=== PATIENT | male | born 1960 | race Caucasian/White ===

== ENCOUNTER 2016-12-17 06:09 | Outpatient (CLI) | payer OTHER ==
[2015-08-11 10:03] VITALS: BMI 30.8
[2016-12-17 06:25] LABS: BASOPHILS # (AUTO) 0.1 K/uL (0-0.2); BASOPHILS % (AUTO) 0.9 % (0.0-3.0); EOSINOPHILS # (AUTO) 0.2 K/ul (0.0-0.7); EOSINOPHILS % (AUTO) 2.3 % (0.0-7.0); HEMATOCRIT 36.8 % (42.0-52.0); HEMOGLOBIN 12.9 g/dl (14.0-18.0); IMMATURE GRANULOCYTE % (AUTO) 0.2 % (0.0-5.0); LYMPHOCYTES % (AUTO) 32.2 (10.0-50.0); MEAN CORPUSCULAR HEMOGLOBIN 31.2 pg (27.0-31.0); MEAN CORPUSCULAR HGB CONC 35.1 (31.8-35.4); MEAN CORPUSCULAR VOLUME 88.9 fl (80.0-94.0); MONOCYTES # (AUTO) 0.4 K/uL (0.4-2.0); NEUTROPHILS # (AUTO) 5.6 K/ul (2.0-6.9); NEUTROPHILS % (AUTO) 60.4; PLATELET COUNT 246 10^3/uL (140-440); RED BLOOD COUNT 4.14 10^6/ul (4.70-6.10)
[2016-12-17 06:48] LABS: ALBUMIN 4.2 g/dL (3.4-5.0); ALBUMIN/GLOBULIN RATIO 1.17; ANION GAP 12.6; BILIRUBIN,TOTAL 0.48 mg/dL (0.00-1.20); BUN/CREATININE RATIO 13.81; CHOL/HDL RATIO 5.8 (4.5-6.4); CREATININE 1.52 mg/dL (0.60-1.10); POTASSIUM 4.6 mmol/L (3.5-5.1); TOTAL PROTEIN 7.8 g/dL (6.4-8.2)
== END 2016-12-17 06:10 | disposition home or self-care (01) ==
LOC: LAB 06:09
PROVIDERS: ATTEND Nurse Practitioner Family
DX: E78.5 Hyperlipidemia, unspecified (principal); I25.10 Atherosclerotic heart disease of native coronary artery without angina pectoris; E11.9 Type 2 diabetes mellitus without complications
CPT/HCPCS: 36415; 80053; 80061; 83036; 85025

== ENCOUNTER 2016-12-25 06:12 | Outpatient (CLI) ==
[2015-08-11 10:03] VITALS: BMI 30.8
--- NOTE | 2016-12-25 08:10 | US ---
EXAM: RENAL ULTRASOUND, BILATERAL HISTORY: Chronic kidney disease FINDINGS: Ultrasound renal, bilateral. Bedoya-scale ultrasound and color Doppler imaging was perform ed. The right kidney measures 11.1 x 5.2 x 3.8 centimeters. The left kidney measures 10.8 x 4.5 x 4.2 centimeters. General cortical echogenicity and volume are normal for age. No solid or cystic cortical masses. N o hydronephrosis is identified. The urinary bladder was less than optimally distended limiting its evaluation. There may be mild ci rcumferential urinary bladder wall thickening. Ureteral jets were not visualized. IMPRESSION: 1. Kidneys were within normal limits. No hydronephrosis. 2. The urinary bladder was less than optimally distended limiting its evaluation. There may be mild circumferential urinary bladder wall thickening.
== END 2016-12-25 06:13 | disposition home or self-care (01) ==
LOC: RAD 06:12
PROVIDERS: ATTEND Emergency Medicine
DX: N18.2 Chronic kidney disease, stage 2 (mild) (principal); D63.1 Anemia in chronic kidney disease
CPT/HCPCS: 76770

== ENCOUNTER 2017-06-18 13:34 | Outpatient (CLI) ==
[2015-08-11 10:03] VITALS: BMI 30.8
[2017-06-18 13:50] LABS: BASOPHILS # (AUTO) 0.1 K/uL (0-0.2); BASOPHILS % (AUTO) 1.3 % (0.0-3.0); EOSINOPHILS # (AUTO) 0.3 K/ul (0.0-0.7); EOSINOPHILS % (AUTO) 3.7 % (0.0-7.0); HEMATOCRIT 39.1 % (42.0-52.0); HEMOGLOBIN 13.5 g/dl (14.0-18.0); IMMATURE GRANULOCYTE % (AUTO) 0.3 % (0.0-5.0); LYMPHOCYTES # (AUTO) 2.1 K/uL (0.60-3.4); MEAN CORPUSCULAR HEMOGLOBIN 30.7 pg (27.0-31.0); MEAN CORPUSCULAR HGB CONC 34.5 (31.8-35.4); MEAN CORPUSCULAR VOLUME 88.9 fl (80.0-94.0); MONOCYTES # (AUTO) 0.3 K/uL (0.4-2.0); MONOCYTES % (AUTO) 4.8 (0-10); NEUTROPHILS # (AUTO) 4.2 K/ul (2.0-6.9); NEUTROPHILS % (AUTO) 59.9; PLATELET COUNT 240 10^3/uL (140-440); WHITE BLOOD COUNT 7.06 K/ul (4.2-10.2)
[2017-06-18 14:02] LABS: ALBUMIN 3.9 g/dL (3.4-5.0); ANION GAP 14.3; BILIRUBIN,TOTAL 0.43 mg/dL (0.00-1.20); BUN/CREATININE RATIO 18.24; CHOL/HDL RATIO 5.8 (4.5-6.4); CREATININE 1.48 mg/dL (0.60-1.10); POTASSIUM 4.3 mmol/L (3.5-5.1); TOTAL PROTEIN 7.8 g/dL (6.4-8.2)
== END 2017-06-18 13:35 | disposition home or self-care (01) ==
LOC: LAB 13:34
PROVIDERS: ATTEND Nurse Practitioner Family
DX: E11.9 Type 2 diabetes mellitus without complications (principal); E78.5 Hyperlipidemia, unspecified; I25.10 Atherosclerotic heart disease of native coronary artery without angina pectoris
CPT/HCPCS: 36415; 80053; 80061; 83036; 85025

== ENCOUNTER 2017-08-24 23:53 | Inpatient (IN) ==
[2017-08-25] MEDS ORDERED: SODIUM CHLORIDE 500 ML IV STA (00:06)
--- NOTE | 2017-08-25 00:40 | ED.PDOC ---
General ED Provider: Dr. BRITTA WYLIE Chief Complaint: Weakness Stated Complaint: Patient had diarrheax 1 episode, felt weak, not able to walk. Time Seen by Physician: 00:36 Mode of Arrival: Wheelchair Information Source: Patient Primary Care Provider: BRITTA WYLIE-[facility] Nursing and Triage Documentation Reviewed and Agree: Yes Reviewed sepsis parameters & appropriate labs ordered?: No System Inflammatory Response Syndrome: Not Applicable Sepsis Protocol: For patient's 13 years and over: Temp is 96.8 and below OR 101 and greater Pulse >90 BPM Resp >20/minute Acutely Altered Mental Status Are patient's symptoms suggestive of a new infection, such as: -Pneumonia -Skin, Soft Tissue -Endocarditis -UTI -Bone, Joint Infection -Implantable Device -Acute Abdominal Infection -Wound Infection -Meningitis -Blood Stream Catheter Infection -Unknown Neurological Complaint Exam - Weakness Complaint/Exam Onset: Sudden Symptoms Are: Still present Timing: Constant Episodes Lasting: Minutes Initial Severity: Moderate Current Severity: Moderate Character: Reports: Room spinning, Lightheaded Aggravating: Reports: Position change Alleviating: Reports: None Associated Signs and Symptoms: Reports: Nausea Cardiac Risk Factors: Reports: Hypertension, Diabetes, Elevated lipids CVA Risk Factors: Reports: Diabetes, Hypertension, CAD Related Surgical History: Reports: None JVD Present: No Carotid Bruit Present: No Rectal Heme Positive: No Nystagmus Present: No Gag Reflex Present: No Meningeal Signs Positive: No Focal Weakness: Present: LLE Focal Sensory Loss: Present: None Gait: Abnormal [id number]: Normal Findings Differential Diagnoses: Hypovolemia, Metabolic abnormalities, Vasovagal reaction Quality Indicators for Cardiac Chest Pain: EKG in 10min. Review of Systems - Review Of Systems Constitutional: Reports: Malaise, Weakness Eyes: Reports: No symptoms Ears, Nose, Mouth, Throat: Reports: No symptoms Respiratory: Reports: No symptoms Cardiac: Reports: No symptoms GI: Reports: Diarrhea : Reports: No symptoms Musculoskeletal: Reports: No symptoms Skin: Reports: No symptoms Neurological: Reports: No symptoms Endocrine: Reports: No symptoms Hematologic/Lymphatic: Reports: No symptoms All Other Systems: Reviewed and Negative Past Medical History - Past Medical History Previously Healthy: No Endocrine: Reports: DM 2 Cardiovascular: Reports: Hypertension Respiratory: Reports: None Hematological: Reports: None Gastrointestinal: Reports: Liver (elevated liver enzymes) Genitourinary: Reports: None Neuro/Psych: Reports: 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) Musculoskeletal: Reports: None Cancer: Reports: None - Surgical History General Surgical History: Reports: None - Family History Family History: Reports: None - Social History Smoking Status: Never smoker Hx Substance Use: No Alcohol Screening: None - Immunizations Tetanus Shot up to Date: No Physical Exam - Physical Exam Appearance: Ill-appearing, Obese Eyes: EOMI, Conjunctiva clear ENT: Ears normal, Nose normal, Oropharynx normal Respiratory: Airway patent, Breath sounds clear, Breath sounds equal, Respirations nonlabored Cardiovascular: RRR, Pulses normal, No rub, No murmur GI/: Soft, Nontender, No masses, Bowel sounds normal, No Organomegaly Musculoskeletal: Normal strength, ROM intact, No edema, No calf tenderness Skin: Warm, Dry, Normal color Neurological: Sensation intact, Motor intact, Reflexes intact, Cranial nerves intact, Alert, Oriented Psychiatric: Affect appropriate, Mood appropriate Critical Care Note - Critical Care Note Total Time (mins): 15 Course - Course Hematology/Chemistry: 08/25/17 00:15 Orders, Labs, Meds: Lab Review 08/25/17 00:15 WBC 14.82 H RBC 4.27 L Hgb 13.5 L Hct 38.7 L MCV 90.6 MCH 31.6 H MCHC 34.9 RDW Coeff of Marsha 13.1 Plt Count 265 Immature Gran % (Auto) 0.5 Neut % (Auto) 86.0 Lymph % (Auto) 7.2 L Orange % (Auto) 3.2 Eos % (Auto) 2.6 Baso % (Auto) 0.5 Immature Gran # (Auto) 0.1 Neut # 12.7 H Lymph # 1.1 Orange # 0.5 Eos # 0.4 Baso # 0.1 Orders Category Date Time Status EKG-(ED ONLY) Stat CARDIO 08/25/17 00:06 Ordered ACCUCHECK (ED) [ED ACCUCHECK ASSESSMENT] .ONCE EMERGENCY 08/25/17 00:15 Active ED IV/MEDIPORT/POWERPORT .ONCE EMERGENCY 08/25/17 00:06 Active CBC W/ AUTO DIFF Stat LAB 08/25/17 00:15 Completed COMPREHENSIVE METABOLIC PANEL Stat LAB 08/25/17 00:15 Received CREATINE KINASE Stat LAB 08/25/17 00:15 Received TROPONIN I Stat LAB 08/25/17 00:15 Received 0.9 % Sodium Chloride [Saline Flush] MEDS 08/25/17 00:06 Ordered 1 syr IVF PRN PRN Sodium Chloride 0.9% [Sodium Chloride] 500 ml MEDS 08/25/17 00:[address] ABDOMEN/PELVIS WO CONTRAST Stat RADS 08/25/17 00:06 Taken Medications Generic Name Dose Route Start Last Admin Trade Name Freq PRN Reason Stop Dose Admin Sodium Chloride 500 mls @ 500 mls/hr 08/25/17 00:06 08/25/17 00:13 Sodium Chloride IV 08/25/17 01:05 500 mls/hr BOLUS STA Administration Sodium Chloride 1 syr 08/25/17 00:06 08/25/17 00:13 Saline Flush IVF 1 syr PRN PRN Administration To flush IV Vital Signs: Temp Pulse Resp BP Pulse Ox 08/24/17 23:54 96.6 F L 91 H 26 H 82/59 L 97 Departure - Departure Time of Disposition: 00:41 Disposition: ADMITTED INPATIENT Discharge Problem: Hypovolemic shock, Gastroenteritis Instructions: Dehydration (ED) Condition: Stable Pt referred to PMD for follow-up: No IPMP verified?: No Allergies/Adverse Reactions: Allergies insulin regular Adverse Reaction (Verified 08/11/15 10:05) ranolazine Adverse Reaction (Verified 08/11/15 10:05) Home Medications: Ambulatory Orders Nitroglycerin [Nitrostat] 0.4 mg SL Q5MIN X 3 DOSES PRN 01/22/14 Aspirin [Aspirin Chewable] 81 mg PO DAILYWM 03/20/15 Pravastatin Sodium [Pravachol] 40 mg PO BEDTIME 08/11/15 Amitriptyline HCl 25 mg PO BEDTIME 01/01/16 Dextromethorphan HBr/Quinidine [Nuedexta 20-10 Mg Capsule] 1 each PO BEDTIME Topiramate [Topamax] 100 mg PO BID 06/21/17 Disposition Discussed With: Patient
--- NOTE | 2017-08-25 00:43 | CT ---
EXAM: CT of the abdomen and pelvis without contrast. HISTORY: Diarrhea. Weakness. PROCEDURE: Contiguous axial CT images of the abdomen and pelvis without contrast with coronal and sa gittal reformats. FINDINGS: The liver is normal in appearance. The gallbladder is surgically absent. The pancreas, sp janae, adrenal glands and kidneys are normal in appearance. The abdominal aorta is within normal limit s in diameter. The visualized loops of bowel and appendix are normal in appearance. No free fluid or free air in the abdomen or pelvis. The bladder is minimally filled with no abnormality identified. The seminal vesicles and prostate gland are unremarkable. There are degenerative changes in the spin e. Impression: Negative CT of the abdomen and pelvis. Cholecystectomy.
[2017-08-25 02:18] VITALS: BMI 27.2
[2017-08-25] MEDS: SODIUM CHLORIDE 1,000 ML IV SCH ×3 (03:07→22:32)
[2017-08-25] MEDS ORDERED: NON-FORMULARY MEDICATION (Empagliflozin [Jardiance] 25 MG) PO SCH (09:00)
[2017-08-25] MEDS ORDERED: NON-FORMULARY MEDICATION (Topiramate [Topamax] 100 MG) PO SCH (09:00)
[2017-08-25] MEDS: ASPIRIN CHEWABLE PO SCH (09:39)
[2017-08-25] MEDS: JARDIANCE PO SCH (09:40)
[2017-08-25] MEDS: TOPAMAX PO SCH ×2 (09:43→20:25)
[2017-08-25] MEDS: LOVENOX SUBCUT SCH (09:44)
[2017-08-25] MEDS: PROTONIX PO SCH (09:48)
[2017-08-25] MEDS: PLAVIX PO SCH (09:48)
[2017-08-25] MEDS: PROAIR HFA IH SCH ×4 (09:49→20:25)
[2017-08-25] MEDS: ELAVIL PO SCH (20:25)
[2017-08-25] MEDS: PRAVACHOL PO SCH (20:25)
[2017-08-25] MEDS: QUINIDINE PO SCH (20:28)
[2017-08-25] MEDS: [UNRECOGNIZED DRUG - OTHER] PO SCH (20:28)
[2017-08-25] MEDS: DEXTROMETHORPHAN HBR PO SCH (20:28)
[2017-08-26] MEDS: PROTONIX PO SCH (05:42)
[2017-08-26] MEDS: PROAIR HFA IH SCH ×4 (08:37→20:33)
[2017-08-26] MEDS: JARDIANCE PO SCH (08:37)
[2017-08-26] MEDS: PLAVIX PO SCH (08:37)
[2017-08-26] MEDS: TOPAMAX PO SCH ×2 (08:37→20:33)
[2017-08-26] MEDS: ASPIRIN CHEWABLE PO SCH (08:37)
[2017-08-26] MEDS: LOVENOX SUBCUT SCH (08:39)
[2017-08-26] MEDS: SODIUM CHLORIDE 1,000 ML IV SCH (09:05)
--- NOTE | 2017-08-26 13:10 | PN ---
DATE OF SERVICE: 08/25/17 SUBJECTIVE: The patient is admitted with acute diarrhea, dehydration, hypovolemic shock. The pressure is at 109; home medications for the blood pressure on hold. The patient is feeling better, don't want to eat, feels somewhat weaker but no diarrhea anymore. REVIEW OF SYSTEMS: CONSTITUTIONAL: Weakness. No fever, no chills. HEENT: Normal. ENDOCRINE: No weight gain, no weight loss. CVS: No angina symptoms. No CHF symptoms. No palpitations. No atypical chest pain for CAD. No shortness of breath. No PND, no orthopnea. RESPIRATORY: No cough, no hemoptysis. GI: Poor appetite. No nausea, no vomiting. No abdominal pain. : No hematuria. No polyuria. MUSCULOSKELETAL: No joint swelling. PSYCHIATRIC: Not anxious. No depression. No suicidal thoughts. No homicidal thoughts. SKIN: Intact. No rash. PHYSICAL EXAMINATION: V/S: BP 109/70, respiratory rate 16, heart rate 91, temperature 98.2, saturation 99. HEENT: Normocephalic, atraumatic. Mucosa dry, pallor positive. No icterus. NECK: Supple. No JVD, no carotid bruit. No lymphadenopathy. LUNGS: Decreased air entry. Clear to auscultation. No rales or rhonchi. HEART: S1, S2 normal. No S3. No murmur, gallop or regurgitation. ABDOMEN: Soft, nontender. Bowel sounds active. No rigidity. No rebound or guarding. No CVA tenderness. EXTREMITIES: No pedal edema. No clubbing or cyanosis MUSCULOSKELETAL: No joint swelling. NEUROLOGIC: Awake, alert, oriented times three. No focal deficit. Left-sided arm weakness 4/5. LYMPHATIC: No lymph nodes palpable. SKIN: Intact. LABS: White count 8.62, hemoglobin 12.0, hematocrit 35.1, platelet count 198. Sodium 142, potassium 4.0, chloride 113, bicarb 20, BUN 23, creatinine 1.28. Glucose 132. ASSESSMENT: 1. ACUTE GASTROENTERITIS 2. HYPOVOLEMIC SHOCK 3. DIABETES 4. HYPERTENSION 5. HISTORY OF CVA WITH LEFT-SIDED WEAKNESS 6. ANEMIA PLAN: 1. Soft diet 2. Continue IV fluids at 100 mL/hr 3. Keep holding blood pressure medications 4. Accu-Cheks with coverage 5. Out of bed to chair TIME SPENT: More than 35 minutes MTDD
--- NOTE | 2017-08-26 16:03 | US ---
EXAM: Bilateral carotid artery Doppler History: Dizziness, cerebrovascular accident. Technique: Multiple sonographic images through the bilateral internal carotid arteries were obtained . Color duplex Doppler was used to interrogate vascular flow. Findings: The right ICA peak systolic velocity is within normal limits measuring 1.1 meters per second. The ri t ICA/cca PSV ratio is normal at 1.1. The right vertebral artery is patent and demonstrates antegr oliver flow. Bedoya scale images demonstrate mild plaque buildup within the right internal carotid artery . The left ICA peak systolic velocities within normal limits measuring 1.0. Meters per second. The le ICA/cca PSV ratio is normal at 1.1. The left vertebral artery is patent and demonstrates antegrad e flow. Bedoya scale images demonstrate mild plaque buildup within the left internal carotid artery Impression: No significant hemodynamic stenosis of the bilateral internal carotid arteries.
[2017-08-26] MEDS: PRAVACHOL PO SCH (20:33)
[2017-08-26] MEDS: ELAVIL PO SCH (20:33)
[2017-08-26] MEDS: [UNRECOGNIZED DRUG - OTHER] PO SCH (20:43)
[2017-08-26] MEDS: QUINIDINE PO SCH (20:43)
[2017-08-26] MEDS: DEXTROMETHORPHAN HBR PO SCH (20:43)
[2017-08-27] MEDS: PROTONIX PO SCH (05:42)
[2017-08-27] MEDS: TOPAMAX PO SCH ×2 (08:57→20:33)
[2017-08-27] MEDS: JARDIANCE PO SCH (08:57)
[2017-08-27] MEDS: ASPIRIN CHEWABLE PO SCH (08:57)
[2017-08-27] MEDS: PROAIR HFA IH SCH ×4 (08:57→20:33)
[2017-08-27] MEDS: PLAVIX PO SCH (08:58)
[2017-08-27] MEDS: LOVENOX SUBCUT SCH (08:59)
[2017-08-27] MEDS: SODIUM CHLORIDE 1,000 ML IV SCH (19:17)
[2017-08-27] MEDS: PRAVACHOL PO SCH (20:33)
[2017-08-27] MEDS: ELAVIL PO SCH (20:33)
[2017-08-27] MEDS: DEXTROMETHORPHAN HBR PO SCH (20:36)
[2017-08-27] MEDS: [UNRECOGNIZED DRUG - OTHER] PO SCH (20:36)
[2017-08-27] MEDS: QUINIDINE PO SCH (20:36)
[2017-08-28] MEDS: PROTONIX PO SCH (06:00)
[2017-08-28] MEDS: PROAIR HFA IH SCH ×2 (08:10→12:01)
[2017-08-28] MEDS: ASPIRIN CHEWABLE PO SCH (08:11)
[2017-08-28] MEDS: PLAVIX PO SCH (08:12)
[2017-08-28] MEDS: JARDIANCE PO SCH (08:12)
[2017-08-28] MEDS: LOVENOX SUBCUT SCH (08:15)
[2017-08-28] MEDS: TOPAMAX PO SCH (08:26)
[2017-08-28 10:23] VITALS: BP 103/65; TEMP 97.6
[2017-08-28] MEDS: SODIUM CHLORIDE 1,000 ML IV SCH (11:00)
--- NOTE | 2017-08-30 15:09 | PN ---
DATE OF SERVICE: 08/26/17 SUBJECTIVE: The patient was admitted with dehydration and hypertensive shock. The patient has been getting IV fluids at 100ml per hour. Blood pressure is around 110 now. Started urinating now. No fever or chills. Had yesterday one twinge in the left side of the chest and some chest pain. The patient is on event monitor. He did press the button and the results were sent to the [facility] in [place]. They are evaluating the patient for palpitation. Also been complaining of some dizziness when he gets up from the bed otherwise no fever or chills and no more diarrhea. REVIEW OF SYSTEMS: CONSTITUTIONAL: No fever, no chills. HEENT: Normal. ENDOCRINE: No weight gain, no weight loss. CVS: No angina symptoms. No CHF symptoms. No palpitations. No atypical chest pain for CAD. No shortness of breath. No PND, no orthopnea. RESPIRATORY: No cough, no hemoptysis. GI: No nausea, no vomiting. No abdominal pain. : No hematuria. No polyuria. MUSCULOSKELETAL: No joint swelling. PSYCHIATRIC: Not anxious. No depression. No suicidal thoughts. No homicidal thoughts. SKIN: Intact. No rash. PHYSICAL EXAMINATION: V/S: Blood pressure 114/69, respiratory rate 20, heart rate 89, temperature 98.7 and saturation 98%. HEENT: Normocephalic, atraumatic. Mucosa dry. Pallor positive. No icterus. NECK: Supple. No JVD, no carotid bruit. No lymphadenopathy. LUNGS: Decreased and Clear to auscultation. No rales or rhonchi. HEART: S1, S2 normal. No S3. No murmur, gallop or regurgitation. ABDOMEN: Soft, nontender. Bowel sounds active. No rigidity. No rebound or guarding. No CVA tenderness. EXTREMITIES: No pedal edema. No clubbing or cyanosis MUSCULOSKELETAL: No joint swelling. Left sided some weakness present. NEUROLOGIC: Awake, alert, oriented times three. No focal deficit. LYMPHATIC: No lymph nodes palpable. SKIN: Intact. LABS: WBC 6.15, hgb 11.8, hct 34.6, plt count 181, sodium 142, potassium 3.8, chloride 113, bicarb 19, BUN 21, creatinine 1.26 and glucose 128. ASSESSMENT: 1. Hypotensive shock from dehydration 2. Acute gastroenteritis 3. Dizziness 4. Chest pain, noncardiac at this time. Cardiac enzymes are negative. EKG is not significant 5. History of CVA 6. History of palpitation, on event monitor right now 7. Diabetes 8. Chronic kidney disease 9. Anemia PLAN: 1. Will get carotid ultrasound 2. Out of bed to chair 3. Decrease the IV fluids at 40ml per hour 4. Resume Lisinopril at 5mg PO daily 5. Accu-checks with coverage TIME SPENT: More than 35 minutes MTDD
--- NOTE | 2017-10-01 10:10 | PN ---
DATE OF SERVICE: 08/27/17 SUBJECTIVE: He is still feeling weak and tired and sometimes some dizziness. Carotid ultrasound did not show any blockage. REVIEW OF SYSTEMS: CONSTITUTIONAL: No fever, no chills. Weak and tired HEENT: Normal. ENDOCRINE: No weight gain, no weight loss. CVS: No angina symptoms. No CHF symptoms. No palpitations. No atypical chest pain for CAD. No shortness of breath. No PND, no orthopnea. RESPIRATORY: No cough, no hemoptysis. GI: No nausea, no vomiting. No abdominal pain. : No hematuria. No polyuria. MUSCULOSKELETAL: No joint swelling. PSYCHIATRIC: Not anxious. No depression. No suicidal thoughts. No homicidal thoughts. SKIN: Intact. No rash. PHYSICAL EXAMINATION: V/S: Blood pressure 118/74, respiratory rate 18, heart rate 83, temperature 98.3 , saturation 100. HEENT: Normocephalic, atraumatic. Mucosa dry. Pallor positive. No icterus. NECK: Supple. No JVD, no carotid bruit. No lymphadenopathy. LUNGS: Clear to auscultation. No rales or rhonchi. HEART: S1, S2 normal. No S3. No murmur, gallop or regurgitation. ABDOMEN: Soft, nontender. Bowel sounds active. No rigidity. No rebound or guarding. No CVA tenderness. EXTREMITIES: No pedal edema. No clubbing or cyanosis MUSCULOSKELETAL: No joint swelling. NEUROLOGIC: Awake, alert, oriented times three. No focal deficit. LYMPHATIC: No lymph nodes palpable. SKIN: Intact. LABS: White count is 6.15, hemoglobin 11.8, hematocrit 34.6, platelet count 181 , sodium 140, potassium 3.8, chloride 113, bicarb 19, BUN 21, creatinine 1.26, glucose 128. ASSESSMENT: 1. HYPOVOLEMIC SHOCK, WHICH IS BETTER NOW 2. ACUTE GASTROENTERITIS 3. CHRONIC KIDNEY DISEASE 4. ANEMIA 5. HISTORY OF CVA WITH LEFT SIDED WEAKNESS 6. PALPITATIONS AND HEART RHYTHM ABNORMAL, BEING EVALUATED WITH EVENT MONITOR RIGHT NOW PLAN: 1. Continue the IV fluids. 2. Accuchecks with the coverage. 3. Lovenox for the DVT prophylaxis. TIME SPENT: More than 35 minutes MTDD
--- NOTE | 2017-10-01 15:05 | DS ---
DATE OF SERVICE: 08/28/17 FINAL DIAGNOSIS: 1. Hypotensive shock from the dehydration 2. Acute gastroenteritis 3. Dizziness 4. Chest pain, noncardiac at this time, Cardiac enzymes are negative. EKG is not significant 5. History of CVA 6. Palpitation 7. Diabetes 8. Chronic kidney disease 9. Anemia DISCHARGE INSTRUCTIONS: Discharge the patient home. Increase hydration. Resume all home medication as patient's blood pressure is almost normal. MEDICATIONS AT DISCHARGE: Nitroglycerin Amitriptyline Aspirin Plavix DUO NEBS Metformin Metoprolol Protonix Pravachol Topamax Triamterene Hydrochlorothiazide DIET INSTRUCTIONS: Cardiac and healthy diet Increase hydration. 2,000 ADA diet ACTIVITY: Can resume regular activities but take plenty of rest as much as possible. Will not be released to work until seen in the office. 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 Came out of the bathroom and sat in the chair and was not able to get up, almost ready to pass out. Not able to get up from the chair so the other security assistant brought to the patient to the emergency room. Blood pressure was 82/59, respiratory rate 26, heart rate 91, temperature 96.6. The patient was given fluid bolus. CT abdomen and pelvis is negative.Was admitted for the volume depletion from acute gastroenteritis. IV fluids were given. BP came up to 110/68, 115/68, up and about walking. He didn't have any more bowel movements. In review of the patient's history of stroke, patient had carotid ultrasound which was negative for stroke, negative for carotid stenosis. Then gradually the patient's home medications were resumed. Blood pressure was holding fine, up and about walking. Sugars were fine. At that time the patient being discharged home. Advised about the probiotics and yogurt and increasing the hydration. TIME SPENT: MORE THAN 55-60 MINUTES MTDD
== END 2017-08-28 14:05 | disposition home or self-care (01) | DRG 872 ==
LOC: ED 23:53 → MEDSURG A 08-25 01:14
PROVIDERS: ADMIT Emergency Medicine; ATTEND Emergency Medicine
DX: R57.1 Hypovolemic shock (principal); I69.954 Hemiplegia and hemiparesis following unspecified cerebrovascular disease affecting left non-dominant side; K52.9 Noninfective gastroenteritis and colitis, unspecified; R53.1 Weakness; R42 Dizziness and giddiness; I10 Essential (primary) hypertension; R07.89 Other chest pain; R00.2 Palpitations; I49.9 Cardiac arrhythmia, unspecified; I12.9 Hypertensive chronic kidney disease with stage 1 through stage 4 chronic kidney disease, or unspecified chronic kidney disease; E11.22 Type 2 diabetes mellitus with diabetic chronic kidney disease; N18.9 Chronic kidney disease, unspecified; D64.9 Anemia, unspecified; Z79.899 Other long term (current) drug therapy; Z79.84 Long term (current) use of oral hypoglycemic drugs
CPT/HCPCS: 36415; 80053; 81001; 82550; 82962; 84484; 85025; 93005; 93010; 96360; 99284

== ENCOUNTER 2017-09-20 10:02 | Inpatient (IN) ==
[2017-09-20 10:47] VITALS: BMI 25.3
[2017-09-20] MEDS ORDERED: SODIUM CHLORIDE 250 ML IV ONE (12:07)
[2017-09-20] MEDS ORDERED: TYLENOL PO PRN (12:10)
[2017-09-20] MEDS: SODIUM CHLORIDE 1,000 ML IV SCH (12:31)
[2017-09-20] MEDS: ROCEPHIN 1 GM in SODIUM CHLORIDE 50 ML IV SCH (13:23)
[2017-09-20] MEDS: SOLU-MEDROL 125 MG IVP SCH ×2 (13:24→21:46)
--- NOTE | 2017-09-20 13:24 | CT ---
Exam: CT of the chest without intravenous contrast. Comparison: 06/20/2014. Reason for exam: Coughing short of breath. FINDINGS: Image interpretation is limited by the lack of intravenous contrast administration. Ground-glass nodularity with developing opacities in the left lower lobe. There is a partially calci fied nodule in the left lung base measuring up to 8 mm. No pneumothorax or pleural effusion. The aorta is normal in course and caliber. The heart is not enlarged. Prompt appearing lymph nodes are seen throughout the mediastinum incompletely evaluated without intra venous contrast. The gallbladder has been removed. Degenerative disease is seen in the thoracic spine with osteophyte formation. No suspicious appearin g osteoblastic or osteolytic lesion. Impression: Ground-glass opacities in the left lower lobe with prominent appearing mediastinal lymph nodes. Imag ing findings are most consistent with pneumonia/pneumonitis. Follow-up imaging is recommended to doc ument resolution
[2017-09-20] MEDS: GLUCOPHAGE PO SCH (16:47)
[2017-09-20] MEDS: DUONEB NEB SCH ×2 (16:57→23:35)
[2017-09-20] MEDS ORDERED: NON-FORMULARY MEDICATION (Metformin Hcl [Metformin Hcl] 1,000 MG) PO SCH (21:00)
[2017-09-20] MEDS ORDERED: NON-FORMULARY MEDICATION (Topiramate [Topamax] 100 MG) PO SCH (21:00)
[2017-09-20] MEDS: PRAVACHOL PO SCH (21:45)
[2017-09-20] MEDS: ELAVIL PO SCH (21:45)
[2017-09-20] MEDS: TOPAMAX PO SCH (21:46)
[2017-09-20] MEDS: QUINIDINE PO SCH (21:48)
[2017-09-20] MEDS: DEXTROMETHORPHAN HBR PO SCH (21:48)
[2017-09-20] MEDS: [UNRECOGNIZED DRUG - OTHER] PO SCH (21:48)
[2017-09-21] MEDS: DUONEB NEB SCH ×4 (05:14→22:52)
[2017-09-21] MEDS: PROTONIX PO SCH (05:50)
[2017-09-21] MEDS: SODIUM CHLORIDE 1,000 ML IV SCH (08:10)
[2017-09-21] MEDS: SOLU-MEDROL 125 MG IVP SCH ×2 (09:16→21:47)
[2017-09-21] MEDS: TOPAMAX PO SCH ×2 (09:16→21:47)
[2017-09-21] MEDS: ROCEPHIN 1 GM in SODIUM CHLORIDE 50 ML IV SCH (09:16)
[2017-09-21] MEDS: DEXTROMETHORPHAN HBR PO SCH ×2 (09:17→21:53)
[2017-09-21] MEDS: ASPIRIN CHEWABLE PO SCH (09:17)
[2017-09-21] MEDS: [UNRECOGNIZED DRUG - OTHER] PO SCH ×2 (09:17→21:53)
[2017-09-21] MEDS: PLAVIX PO SCH (09:17)
[2017-09-21] MEDS: QUINIDINE PO SCH ×2 (09:17→21:53)
[2017-09-21] MEDS: GLUCOPHAGE PO SCH (09:17)
[2017-09-21] MEDS ORDERED: PHENERGAN WITH CODEINE 6.25/10 MG/5 ML PO PRN (09:27)
[2017-09-21] MEDS: ELAVIL PO SCH (21:47)
[2017-09-21] MEDS: PRAVACHOL PO SCH (21:47)
[2017-09-22] MEDS: DUONEB NEB SCH ×4 (04:58→22:59)
[2017-09-22] MEDS: PROTONIX PO SCH (05:42)
[2017-09-22] MEDS: SODIUM CHLORIDE 1,000 ML IV SCH (06:38)
[2017-09-22] MEDS: ROCEPHIN 1 GM in SODIUM CHLORIDE 50 ML IV SCH (09:05)
[2017-09-22] MEDS: [UNRECOGNIZED DRUG - OTHER] PO SCH ×2 (09:05→20:39)
[2017-09-22] MEDS: DEXTROMETHORPHAN HBR PO SCH ×2 (09:05→20:39)
[2017-09-22] MEDS: QUINIDINE PO SCH ×2 (09:05→20:39)
[2017-09-22] MEDS: ASPIRIN CHEWABLE PO SCH (09:06)
[2017-09-22] MEDS: TOPAMAX PO SCH ×2 (09:06→20:39)
[2017-09-22] MEDS: PLAVIX PO SCH (09:06)
[2017-09-22] MEDS: SOLU-MEDROL 125 MG IVP SCH ×2 (11:14→20:39)
--- NOTE | 2017-09-22 12:06 | DI ---
EXAM: Chest two view, frontal and lateral views. HISTORY: Left lower lobe pneumonia follow-up. COMPARISON: CT 09/20/2017. FINDINGS: Implantable loop recorder again noted over the anterior left chest. The heart size is nor mal. There is no pulmonary vascular congestion. Nodular densities in the left lower lobe again note d. Otherwise, the lungs are clear save for calcified granulomatous changes. No pleural effusion or pneumothorax is seen. No acute osseous abnormality identified. Degenerative changes seen in the spi ne. Clips noted in the upper abdomen. IMPRESSION: Stable left lower lobe nodular densities. Continued follow-up is recommended.
--- NOTE | 2017-09-22 13:48 | PN ---
DATE OF SERVICE: 09/21/17 SUBJECTIVE: The patient was admitted from the office yesterday for the shortness of breath, syncope, hypotension. CT scan of the chest showed the left lower lobe pneumonia. The patient has been getting the IV antibiotics, DUO NEBS. Blood pressure is still on the lower side 92/58 slightly dizziness. Hgb dropped from the 14.4 to 11.2. REVIEW OF SYSTEMS: CONSTITUTIONAL: No fever, no chills. Weakness. Tiredness. HEENT: Normal. ENDOCRINE: No weight gain, no weight loss. CVS: No angina symptoms. No CHF symptoms. No palpitations. No atypical chest pain for CAD. Shortness of breath. No PND, no orthopnea. RESPIRATORY: Cough and congestion, no hemoptysis. Lightheadedness. GI: No nausea, no vomiting. No abdominal pain. : No hematuria. No polyuria. MUSCULOSKELETAL: No joint swelling. PSYCHIATRIC: Not anxious. No depression. No suicidal thoughts. No homicidal thoughts. SKIN: Intact. No rash. PHYSICAL EXAMINATION: V/S: Blood pressure 92/58, respiratory rate 20, heart rate 107, temperature 98.1 and saturation 98%. HEENT: Normocephalic, atraumatic. Mucosa dry. Pallor positive. No icterus. NECK: Supple. No JVD, no carotid bruit. No lymphadenopathy. LUNGS: Decreased and basilar crackles more on the left side than the right side. Clear to auscultation. No rales or rhonchi. HEART: S1, S2 normal. No S3. No murmur, gallop or regurgitation. ABDOMEN: Soft, nontender. Bowel sounds active. No rigidity. No rebound or guarding. No CVA tenderness. EXTREMITIES: No pedal edema. No clubbing or cyanosis MUSCULOSKELETAL: No joint swelling. Left sided slight weakness. NEUROLOGIC: Awake, alert, oriented times three. No focal deficit. LYMPHATIC: No lymph nodes palpable. SKIN: Intact. LABS: WBC 5.70, hgb 11.2, hct 32.3, plt count 201, sodium 135, potassium 4.0, chloride 104, bicarb 18, BUN 41, creatinine 1.52 and glucose 233. ASSESSMENT: 1. Community acquired pneumonia, left lower lobe 2. Hypotension from dehydration 3. Acute renal failure 4. Diabetes 5. CVA with left sided weakness 6. Arrhythmia being followed by [employer] and Event monitor 7. COPD 8. Depression PLAN: 1. Continue the Rocephin, Codeine and Phenergan for cough syrup 2. DUO NEBS 3. Solu-Medrol 80 Q 12 4. IV fluids at 42ml per hour 5. Daily I&O's TIME SPENT: More than 35 minutes MTDD
[2017-09-22] MEDS: PRAVACHOL PO SCH (20:39)
[2017-09-22] MEDS: ELAVIL PO SCH (20:39)
[2017-09-23] MEDS: DUONEB NEB SCH ×4 (05:14→22:20)
[2017-09-23] MEDS: PROTONIX PO SCH (05:32)
[2017-09-23] MEDS: ROCEPHIN 1 GM in SODIUM CHLORIDE 50 ML IV SCH (09:02)
[2017-09-23] MEDS: [UNRECOGNIZED DRUG - OTHER] PO SCH ×2 (09:03→20:53)
[2017-09-23] MEDS: DEXTROMETHORPHAN HBR PO SCH ×2 (09:03→20:53)
[2017-09-23] MEDS: QUINIDINE PO SCH ×2 (09:03→20:53)
[2017-09-23] MEDS: TOPAMAX PO SCH ×2 (09:04→20:54)
[2017-09-23] MEDS: SOLU-MEDROL 125 MG IVP SCH ×2 (09:04→20:53)
[2017-09-23] MEDS: ASPIRIN CHEWABLE PO SCH (09:04)
[2017-09-23] MEDS: PLAVIX PO SCH (09:04)
[2017-09-23] MEDS: SODIUM CHLORIDE 1,000 ML IV SCH ×2 (12:18→18:05)
[2017-09-23] MEDS ORDERED: NON-FORMULARY MEDICATION (Lisinopril [Lisinopril] 20 MG) PO SCH (12:45)
[2017-09-23] MEDS ORDERED: ZESTRIL PO SCH (13:00)
[2017-09-23] MEDS: LOPRESSOR PO SCH (13:20)
[2017-09-23] MEDS: PRAVACHOL PO SCH (20:54)
[2017-09-23] MEDS: IMDUR PO SCH (20:54)
[2017-09-23] MEDS: ELAVIL PO SCH (20:54)
[2017-09-23] MEDS ORDERED: NON-FORMULARY MEDICATION (Isosorbide Mononitrate [Isosorbide Mononitrate Er] 60 MG) PO SCH (21:00)
[2017-09-24] MEDS: DUONEB NEB SCH (05:00)
[2017-09-24] MEDS: PROTONIX PO SCH (05:50)
[2017-09-24] MEDS ORDERED: PREDNISONE PO STA (08:16)
[2017-09-24] MEDS ORDERED: OMNICEF PO STA (08:16)
[2017-09-24] MEDS: ASPIRIN CHEWABLE PO SCH (08:49)
[2017-09-24] MEDS: TOPAMAX PO SCH (08:50)
[2017-09-24] MEDS: LOPRESSOR PO SCH (08:50)
[2017-09-24] MEDS: [UNRECOGNIZED DRUG - OTHER] PO SCH (08:51)
[2017-09-24] MEDS: PLAVIX PO SCH (08:51)
[2017-09-24] MEDS: DEXTROMETHORPHAN HBR PO SCH (08:51)
[2017-09-24] MEDS: QUINIDINE PO SCH (08:51)
[2017-09-24] MEDS: IMDUR PO SCH (08:51)
[2017-09-24] MEDS ORDERED: ZESTRIL PO SCH (09:00)
[2017-09-24 10:00] VITALS: BP 110/65; TEMP 97.7
--- NOTE | 2017-10-08 14:05 | DS ---
DATE OF SERVICE: 09/24/17 FINAL DIAGNOSIS: 1. Left lower lobe pneumonia, community acquired 2. Acute on chronic renal failure which is resolved 3. Status post hypotension which is improved 4. History of CVA 5. Diabetes 6. Hypertension 7. Dyslipidemia DISCHARGE INSTRUCTIONS: Discharge the patient home. Continue the rest of the home medications. MEDICATIONS AT DISCHARGE: Nitroglycerin Amitriptyline Aspirin Plavix Metformin Metoprolol Triamterene/Hydrochlorothiazide NEW PRESCRIPTIONS: Omnicef 30mmg twice a day Prednisone 10mg twice a day Phenergan with codeine Atrovent inhaler two puffs twice a day DIET INSTRUCTIONS: Diabetic and cardiac diet ACTIVITY: As much as tolerated DISEASE SPECIFIC EDUCATION: Pneumonia and pneumonia vaccination been discussed Dehydration and acute renal failure been discussed Medication side effects been discussed. Antibiotic and diarrhea been discussed. HOSPITAL COURSE: Dorys Dee who was recently admitted to the [facility] for dehydration and gastroenteritis went home and came back with cough and congestion, left basilar pneumonia, hypotension and that time the patient was admitted to the hospital and started on the Rocephin, Breathing treatments, steroids and IV fluids were given for the blood pressure. Gradually the patient' s blood pressure came up to 100 and 123 systolic by second day. Blood pressure was kept holding. CT chest showed the left lower lobe pneumonia. Coughing and congestion. Cough medication was given which did help. Gradually then BUN and creatinine was getting worse,went from 27 BUN to 41 then 1.54 creatinine to 1.52. IV fluids were given, Accu-check with coverage done. Gradually BUN and creatinine came down to 30 and 1.33. The patient is up and about walking. Chest x-ray still showed the pneumonia but it was better. Clinically the patient was a lot improved and up and about walking. At that time the discharge plan made and the patient being discharged home. Advised clearly to continue the antibiotics and probiotics and yogurt. Explained about the COPD and need for the pneumonia vaccination, verbalized understanding. TIME SPENT: MORE THAN 65 MINUTES MTDD
== END 2017-09-24 10:56 | disposition home or self-care (01) | DRG 194 ==
LOC: MEDSURG A 10:02
PROVIDERS: ADMIT Emergency Medicine; ATTEND Emergency Medicine
DX: J18.9 Pneumonia, unspecified organism (principal); N17.9 Acute kidney failure, unspecified; I69.354 Hemiplegia and hemiparesis following cerebral infarction affecting left non-dominant side; I95.9 Hypotension, unspecified; E86.0 Dehydration; I10 Essential (primary) hypertension; R06.02 Shortness of breath; I12.9 Hypertensive chronic kidney disease with stage 1 through stage 4 chronic kidney disease, or unspecified chronic kidney disease; E11.22 Type 2 diabetes mellitus with diabetic chronic kidney disease; N18.9 Chronic kidney disease, unspecified; I49.9 Cardiac arrhythmia, unspecified; J44.9 Chronic obstructive pulmonary disease, unspecified; F32.9 Major depressive disorder, single episode, unspecified; E78.5 Hyperlipidemia, unspecified; R42 Dizziness and giddiness; Z79.84 Long term (current) use of oral hypoglycemic drugs; Z79.02 Long term (current) use of antithrombotics/antiplatelets
CPT/HCPCS: 36415; 80048; 80053; 81001; 82550; 82962; 84484; 85007; 85025; 87040; 87081; 93005; 93010; 94640

== ENCOUNTER 2017-09-29 10:20 | Outpatient (CLI) | END 2017-09-29 10:21 | disposition home or self-care (01) | LOC: RHC-LAB 10:20 | PROVIDERS: ATTEND Emergency Medicine | DX: N17.1 Acute kidney failure with acute cortical necrosis (principal); D50.0 Iron deficiency anemia secondary to blood loss (chronic) | CPT/HCPCS: 36415; 80053; 82607; 82728; 82746; 83540; 83550; 84466; 85045 ==

== ENCOUNTER 2017-11-30 10:31 | Outpatient (CLI) | END 2017-11-30 10:32 | disposition home or self-care (01) | LOC: RHC-LAB 10:31 | PROVIDERS: ATTEND Emergency Medicine | DX: E11.9 Type 2 diabetes mellitus without complications (principal); E78.5 Hyperlipidemia, unspecified; I25.10 Atherosclerotic heart disease of native coronary artery without angina pectoris | CPT/HCPCS: 36415; 80053; 80061; 83036; 84443; 85025 ==

== ENCOUNTER 2018-03-04 11:16 | Outpatient (CLI) | END 2018-03-04 11:17 | disposition home or self-care (01) | LOC: RHC-LAB 11:16 | PROVIDERS: ATTEND Emergency Medicine | DX: E11.9 Type 2 diabetes mellitus without complications (principal); I25.10 Atherosclerotic heart disease of native coronary artery without angina pectoris; E78.5 Hyperlipidemia, unspecified | CPT/HCPCS: 36415; 80053; 80061; 83036; 84443; 85025 ==

== ENCOUNTER 2018-05-04 10:44 | Outpatient (CLI) | END 2018-05-04 10:45 | disposition home or self-care (01) | LOC: FCC-LAB 10:44 | PROVIDERS: ATTEND Family Medicine | DX: B35.1 Tinea unguium (principal); E11.9 Type 2 diabetes mellitus without complications | CPT/HCPCS: 36415; 82043; 87101 ==

== ENCOUNTER 2018-07-12 10:14 | Outpatient (CLI) | END 2018-07-12 10:15 | disposition home or self-care (01) | LOC: FCC-LAB 10:14 | PROVIDERS: ATTEND Family Medicine | DX: E78.5 Hyperlipidemia, unspecified (principal); E11.9 Type 2 diabetes mellitus without complications; I25.10 Atherosclerotic heart disease of native coronary artery without angina pectoris; N18.2 Chronic kidney disease, stage 2 (mild); Z68.29 Body mass index [BMI] 29.0-29.9, adult | CPT/HCPCS: 36415; 80053; 80061; 83037; 85025 ==

== ENCOUNTER 2018-08-15 07:56 | Outpatient (CLI) | END 2018-08-15 07:57 | disposition home or self-care (01) | LOC: RHC-LAB 07:56 → FCC-LAB 07:57 | PROVIDERS: ATTEND Family Medicine | DX: N18.2 Chronic kidney disease, stage 2 (mild) (principal) | CPT/HCPCS: 36415; 80053 ==

== ENCOUNTER 2018-09-15 14:03 | Outpatient (CLI) | END 2018-09-15 14:04 | disposition home or self-care (01) | LOC: LAB 14:03 | PROVIDERS: ATTEND Family Medicine | DX: K21.9 Gastro-esophageal reflux disease without esophagitis (principal); R10.13 Epigastric pain | CPT/HCPCS: 87338 ==

== ENCOUNTER 2018-09-20 07:49 | Outpatient (CLI) ==
--- NOTE | 2018-09-20 14:33 | NM ---
EXAM: Gastric emptying study HISTORY: GERD without esophagitis. COMPARISON: None of this type. PROCEDURE: The patient was administered 2 mCi of 99m technetium sulfur colloid mixed with eggs toast and water as a solid phase meal. Imaging of the stomach was performed at one hour intervals for 4 ho urs in anterior and posterior projections simultaneously. Subsequently time activity curves were hermelidna culated using anterior, posterior and geometric mean data. The gastric emptying half-time was determ ined. FINDINGS:The examination demonstrates a normal appearance of activity within the stomach. Sequential images demonstrate transit of activity from the stomach into the small bowel. The examination demon strates 18% emptying at 30 minutes, 36% emptying at 1 hour, 74% emptying at 2 hours, 85% emptying at 3 hours and 96% emptying at 4 hours. The gastric emptying half-time is between 1 hour and 2 hours. IMPRESSION: 1.The gastric emptying half-time is between 1 hour and 2 hours (within normal limits) 2.Images of the activity in the stomach and small bowel are within normal limits.
== END 2018-09-20 07:50 | disposition home or self-care (01) ==
LOC: RAD 07:49
PROVIDERS: ATTEND Family Medicine
DX: K21.9 Gastro-esophageal reflux disease without esophagitis (principal); R10.13 Epigastric pain

== ENCOUNTER 2018-11-24 09:43 | Outpatient (CLI) | END 2018-11-24 09:44 | disposition home or self-care (01) | LOC: RHC-LAB 09:43 | PROVIDERS: ATTEND Family Medicine | DX: E78.5 Hyperlipidemia, unspecified (principal); E11.9 Type 2 diabetes mellitus without complications; E66.9 Obesity, unspecified | CPT/HCPCS: 36415; 80053; 80061; 83036; 85025 ==

== ENCOUNTER 2021-11-20 16:22 | Inpatient (IN) ==
[2021-11-20] MEDS ORDERED: SODIUM CHLORIDE 1,000 ML IV STA (16:46)
[2021-11-20] MEDS ORDERED: TYLENOL PO STA (16:55)
--- NOTE | 2021-11-20 16:55 | ED.PDOC ---
General ED Provider: Dr. EMILY SRIVASTAVA MD Chief Complaint: Syncope Stated Complaint: new onset syncope today while walking, fell forward, no visual disturbance, no NV, no chest pain, speech fluent, nose bleeding stopped, no malocclusion to bite, not short of breath, hx dm, mi, cva w/ residual left side weak Time Seen by Provider: 11/20/21 16:39 Mode of Arrival: Ambulance Information Source: Patient Primary Care Provider: JEROD ZAMAN MD Nursing and Triage Documentation Reviewed and Agree: Yes Does patient meet sepsis criteria?: No System Inflammatory Response Syndrome: Not Applicable Sepsis Protocol: For patient's 13 years and over: Temp is 96.8 and below OR 101 and greater Pulse >90 BPM Resp >20/minute Acutely Altered Mental Status Are patient's symptoms suggestive of a new infection, such as: -Pneumonia -Skin, Soft Tissue -Endocarditis -UTI -Bone, Joint Infection -Implantable Device -Acute Abdominal Infection -Wound Infection -Meningitis -Blood Stream Catheter Infection -Unknown Review of Systems Review Of Systems Constitutional: Denies Fever Eyes: Denies Vision change Ears, Nose, Mouth, Throat: Reports Epistaxis; Denies Throat pain Respiratory: Denies Short of air Cardiac: Denies Chest pain GI: Denies Abdominal pain or Vomiting : Denies Flank pain Musculoskeletal: Reports Joint pain; Denies Back pain or Neck pain Skin: Reports Bruising; Denies Cyanosis Neurological: Denies Cognitive dysfunction or Headache All Other Systems: Other [facility] Medical History Anxiety Cerebrovascular accident Chronic obstructive pulmonary disease Coronary heart disease Diabetes mellitus Dyslipidemia Gastroenteritis History of gastroesophageal reflux (GERD) Hypertension Hypovolemic shock Laceration of finger Myocardial infarction Pneumonia Shoulder pain, right Transient ischemia Family History Mother Cardiac disease FATHER Cardiac disease Muscular dystrophy SISTER No problems noted. BROTHER No problems noted. BROTHER No problems noted. PATERNAL GRANDFATHER Hodgkins disease Muscular dystrophy Social History Smoking and tobacco status: Never smoker Second hand smoke exposure: No Smoking risk assessment performed: No Alcohol intake: never Substance use type: does not use Counseling given: No Counseling provided: none Estella/faith: OTHER Special estella needs: No Agree to transfusion: Yes Adopted: No Caregiver/support person: No Foster care: No Household members: spouse Housing: house Marital status: M Lives independently: Yes Daycare: no daycare Number of children: 2 Number of grandchildren: 2 Highest education level completed: Associate degree: occupational, technical, vocational program service: No senior living: No Current occupational status: employed Current occupational exposures/hazards: No Pets and animals: No History of recent travel: No Sexually active: Yes Do you think of yourself as: straight/heterosexual Current gender identity: male Seatbelt use: always Drives intoxicated or rides with intoxicated corporate driver: No Water heater temperature set < 120 degrees: Yes Working smoke detector in home: No Fire extinguisher in home: No Carbon monoxide detector in home: No Firearms in home: Yes Firearms unloaded and locked: Yes What type of physical activity do you participate in?: walking Physical activity functional status: independent ambulation How many days of moderate to strenuous exercise, like a brisk walk, did you do in the last 7 days: 1 Surgical History History of heart surgery Status post cholecystectomy Status post tonsillectomy Status post tonsillectomy and adenoidectomy Physical Exam Physical Exam Appearance: Reports No pain distress Ill-appearing: None Pain Distress: None Eyes: Reports HYUN, EOMI, Conjunctiva clear and Other (abrasion left zygoma and lower lip) ENT: Reports Epistaxis and Other (no septal hematoma) Neck: Supple Respiratory: Reports Airway patent, Breath sounds clear and Breath sounds equal Cardiovascular: Reports RRR GI/: Reports Soft and Nontender Musculoskeletal: Reports ROM intact and Other (tender left hip and right knee, flynn, nontender left knee and right hip, auth specialist grossly equal, nontender midline spine of neck and back, +tender left ankle) Skin: Reports Warm; Denies Cyanotic Neurological: Reports Cranial nerves intact, Alert and Oriented Psychiatric: Reports Affect appropriate Interpretation Radiology Interpretation Radiology Interpretation By: Radiologist Xray Comments: per Rad no fx c spine, face, left hip, right knee Radiology Interpretation By: Radiologist Xray Comments: nap head ct, no fx left ankle, cxr nap EKG Interpretation Time of EKG #1: 19:02 Rate: Normal Rhythm: Sinus Interpretation: no stemi Critical Care Note Critical Care Note Total Critical Care Time (mins): 0 Course Course Hematology/Chemistry: 11/20/21 16:59 11/20/21 16:59 Orders, Labs, Meds: Lab Review 11/20/21 11/20/21 11/20/21 16:59 16:59 16:59 WBC 9.90 RBC 4.53 L Hgb 13.8 L Hct 39.9 L MCV 88.1 MCH 30.5 MCHC 34.6 RDW Coeff of Marsha 13.3 Plt Count 233 Immature Gran % (Auto) 0.3 Neut % (Auto) 69.2 Lymph % (Auto) 18.1 Steele % (Auto) 4.9 Eos % (Auto) 6.3 Baso % (Auto) 1.2 Neut # (Auto) 6.9 Lymph # (Auto) 1.8 Steele # (Auto) 0.5 Eos # (Auto) 0.6 Baso # (Auto) 0.1 Immature Gran # (Auto) 0.0 PT 11.0 INR 1.06 Sodium 140.1 Potassium 3.40 L Chloride 95.6 L Carbon Dioxide 32.6 H Anion Gap 15.30 BUN 47.0 H Creatinine 1.86 H Estimated GFR (MDRD) 37.00 BUN/Creatinine Ratio 25.26 Glucose 143.9 H Calcium 9.92 Total Bilirubin 0.58 AST 28.0 ALT 26.8 Alkaline Phosphatase 94.5 Troponin I < 0.012 Total Protein 8.16 Albumin 4.90 Globulin 3.26 Albumin/Globulin Ratio 1.50 Plasma/Serum Alcohol < 10.0 Orders Category Date Time Status [facility] ADMISSION 11/20/21 18:54 Ordered EKG-(ED ONLY) Stat CARDIO 11/20/21 16:46 Completed EKG-(IP & OP ONLY) DAILY CARDIO 11/21/21 06:00 Ordered EKG-(IP & OP ONLY) DAILY CARDIO 11/22/21 06:00 Ordered METERED DOSE INHALATION Routine CARDIO 11/20/21 18:58 Ordered ACTIVITY .Complete BR CARE 11/20/21 18:54 Ordered BLOOD GLUCOSE MONITORING (MED/SURG) ACCUCHECK Q6H CARE 11/20/21 18:54 Ordered GIVE HS SNACK 2100 CARE 11/20/21 18:55 Ordered INTAKE & OUTPUT Q8HR CARE 11/20/21 18:54 Ordered IP: INSERT SALINE LOCK ONCE CARE 11/20/21 18:54 Ordered TELEMETRY MONITORING TELE CARE 11/20/21 18:54 Ordered VITAL SIGNS Q8HR CARE 11/20/21 18:54 Ordered VTE PREVENTION .ARNOLDO On AM/Off PM CARE 11/20/21 18:54 Ordered ADA 1800 TJ. DIET DIETARY 11/20/21 Dinner Ordered HS SNACK DIETARY 11/20/21 Dinner Ordered BLOOD ALCOHOL Stat LAB 11/20/21 16:59 Completed CBC W/ AUTO DIFF DAILY@0600 LAB 11/21/21 06:00 Ordered CBC W/ AUTO DIFF DAILY@0600 LAB 11/22/21 06:00 Ordered CBC W/ AUTO DIFF Stat LAB 11/20/21 16:59 Completed CMP [COMPREHENSIVE METABOLIC PANEL] Stat LAB 11/20/21 16:59 Completed COMPREHENSIVE METABOLIC PANEL DAILY@0600 LAB 11/21/21 06:00 Ordered COMPREHENSIVE METABOLIC PANEL DAILY@0600 LAB 11/22/21 06:00 Ordered DRUG SCREEN, URINE, RAPID Stat LAB 11/20/21 16:46 Uncollected PT WITH INR Stat LAB 11/20/21 16:59 Completed TROPONIN I Q8H LAB 11/21/21 01:00 Ordered TROPONIN I Q8H LAB 11/21/21 09:00 Ordered TROPONIN I Stat LAB 11/20/21 16:59 Completed 1 gm/50 ml IV Daily Candy MEDS 11/21/21 09:00 Ordered Ceftriaxone/D5w 1 gm Premix [Rocephin 1 gm/50 ml D5w] 1 gm in 50 ml IV DAILY Acetaminophen [Tylenol] MEDS 11/20/21 16:55 Discontinued 650 mg PO ONCE STA Acetaminophen [Tylenol] MEDS 11/20/21 18:54 Ordered 650 mg PO Q4H PRN Albuterol Inhaler(with Spacer) [Ventolin Hfa (Per Puff- MEDS 11/20/21 18:58 Ordered with Spacer)] 2 puff IH Q6H PRN Aspirin [Aspirin Chewable] MEDS 11/21/21 08:30 Ordered 81 mg PO DAILYWM Clopidogrel Bisulfate [Plavix] MEDS 11/21/21 09:00 Ordered 75 mg PO DAILY Diphth,Pertuss(Acell),Tet Vac [Boostrix] MEDS 11/20/21 18:45 Discontinued 0.5 ml IM .ONCE ONE Gabapentin [Neurontin] MEDS 11/20/21 21:00 Ordered 300 mg PO BID Insulin Regular, Human [Humulin R] MEDS 11/20/21 18:54 Ordered See Protocol SUBCUT PRN PRN Isosorbide Mononitrate [Imdur] MEDS 11/21/21 09:00 Ordered 120 mg PO QAM Metoprolol Tartrate [Lopressor] MEDS 11/21/21 09:00 Ordered 25 mg PO DAILY Sodium Chloride 0.9% [Sodium Chloride] 1,000 ml MEDS 11/20/21 16:46 Discontinued IV BOLUS RESUSCITATION STATUS Routine OTHERS 11/20/21 18:54 Ordered ANKLE, LEFT MIN 3 VIEWS Stat RADS 11/20/21 17:37 Completed CHEST, 1V AP ONLY Stat RADS 11/20/21 16:[address] CERVICAL SPINE W/O CONTRAST Stat RADS 11/20/21 16:[address] HEAD W/O CONTRAST Stat RADS 11/20/21 16:[address] MAXILLOFACIAL W/O CONTRAST Stat RADS 11/20/21 16:46 Completed KNEE, RIGHT 1 OR 2 VIEWS Stat RADS 11/20/21 16:46 Completed PELVIS & YVES HIPS Stat RADS 11/20/21 16:46 Completed Medications Generic Name Dose Route Start Last Admin Trade Name Freq PRN Reason Stop Dose Admin Acetaminophen 650 mg 11/20/21 18:54 Acetaminophen 325 Mg Tablet PO Q4H PRN Mild Pain CEFTRIAXONE/D5W 1 GM PREMIX 1 gm in 50 mls @ 75 mls/hr 11/21/21 09:00 Rocephin 1 Gm/50 Ml D5w IV 11/24/21 08:59 DAILY CANDY Insulin Human Regular 0 unit 11/20/21 18:54 Insulin Regular, Human 100 Unit/Ml (3ml) Vial SUBCUT PRN PRN Hyperglycemia Protocol Discontinued Medications Generic Name Dose Route Start Last Admin Trade Name Freq PRN Reason Stop Dose Admin Acetaminophen 650 mg 11/20/21 16:55 11/20/21 17:00 Acetaminophen 325 Mg Tablet PO 11/20/21 16:56 650 mg ONCE STA Administration Diphtheria/Pertussis/Tetanus Vacc 0.5 ml 11/20/21 18:45 11/20/21 18:58 Diphth,Pertuss(Acell),Tet Vac 0.5 Ml Disp.Syrin IM 11/20/21 18:46 0.5 ml .ONCE ONE Administration Sodium Chloride 1,000 mls @ 1,000 mls/hr 11/20/21 16:46 11/20/21 18:23 Sodium Chloride IV 11/20/21 17:45 1,000 mls/hr BOLUS STA Administration Vital Signs: Temp Pulse Resp BP Pulse Ox 11/20/21 16:23 99.1 F 107 H 20 124/90 99 Discharge Plan Discharge Patient Disposition: ADMITTED INPATIENT Discharge Problem: Syncope Prescriptions: No Action ONE TOUCH ULTRA 1 EACH EACH 1 ea MC BID PRNQty: 50 3RF (DME) Blood Glucose Test 1 EACH strip 1 ea MC DAILY 30 Days Qty: 30 2RF nitroglycerin 0.4 MG tablet, sublingual 0.4 mg sublingual PRN PRN (Reason: Chest Pain) 30 Days Qty: 10 1RF isosorbide mononitrate 120 mg tablet extended release 24 hr 120 mg PO QAM Qty: 30 5RF Hold Instructions: [place] metformin 1,000 mg tablet 1,000 mg PO BID Qty: 180 2RF gabapentin [Neurontin] 300 mg capsule 300 mg PO BID 90 Days Qty: 180 1RF (DME) pen needle, diabetic [UltiCare Pen Needle] 32 gauge x 5/32" needle See Rx Instructions .ROUTE Qty: 100 2RF Rx Instructions: As directed topiramate 100 mg tablet See Rx Instructions .ROUTE .COMPLEX Qty: 180 0RF Dose Instruction: Take 1 tablet by mouth twice daily Rx Instructions: Take 1 tablet by mouth twice daily glipizide 2.5 mg tablet extended release 24 hr 2.5 mg PO DAILY 30 Days Qty: 30 3RF amitriptyline 25 mg tablet 25 mg PO BEDTIME Qty: 90 0RF clopidogrel [Plavix] 75 mg tablet 75 mg PO DAILY Qty: 90 0RF pravastatin 40 mg tablet 40 mg PO QHS Qty: 30 0RF aspirin 81 MG tablet,chewable 81 mg PO DAILYWM 0RF zinc 25 mg Tablet 25 mg PO DAILY 0RF Vitamin C 100 mg Tablet 100 mg PO DAILY 0RF Atrovent HFA 1 PUFF HFA aerosol inhaler 2 puff inhalation BID Qty: 1 0RF albuterol sulfate 90 mcg/actuation HFA aerosol inhaler 2 puff inhalation Q6H PRN (Reason: shortness of breath or wheezing) Qty: 6.7 0RF meloxicam 15 mg tablet 15 mg PO BEDTIME 0RF Victoza 3-Imtiaz 0.6 mg/0.1 mL (18 mg/3 mL) pen injector See Rx Instructions subcut .COMPLEX Qty: 9 12RF Rx Instructions: inject 0.6mg subcutaneously once daily x 7 days; then 1.2mg daily, not to exceed 1.8mg/day subcut. DO NOT TAKE WITH JANUVIA. 340B. furosemide [Lasix] 40 mg tablet 40 mg PO QAM Qty: 7 0RF metoprolol tartrate 50 mg tablet 25 mg PO DAILY 0RF cholecalciferol (vitamin D3) 125 mcg (5,000 unit) capsule 125 mcg PO QDAY 0RF vitamin B complex [B Complex-Vitamin B12] Tablet 1 tab PO QDAY 0RF ED Provider: EMILY SRIVASTAVA Condition: Stable Physician Progress Note: care to Dr Diagle at 19:00 admit to hospitalist d/w Dr Zaman []
[2021-11-20 17:09] LABS: BASOPHILS # (AUTO) 0.1 K/uL (0-0.2); BASOPHILS % (AUTO) 1.2 % (0.0-3.0); EOSINOPHILS # (AUTO) 0.6 K/ul (0.0-0.7); EOSINOPHILS % (AUTO) 6.3 % (0.0-7.0); HEMATOCRIT 39.9 % (42.0-52.0); HEMOGLOBIN 13.8 g/dl (14.0-18.0); IMMATURE GRANULOCYTE % (AUTO) 0.3 % (0.0-5.0); LYMPHOCYTES # (AUTO) 1.8 K/uL (0.60-3.4); LYMPHOCYTES % (AUTO) 18.1 (10.0-50.0); MEAN CORPUSCULAR HEMOGLOBIN 30.5 pg (27.0-31.0); MEAN CORPUSCULAR HGB CONC 34.6 (31.8-35.4); MEAN CORPUSCULAR VOLUME 88.1 fl (80.0-94.0); MONOCYTES # (AUTO) 0.5 K/uL (0.4-2.0); MONOCYTES % (AUTO) 4.9 (0-10); NEUTROPHILS # (AUTO) 6.9 K/ul (2.0-6.9); NEUTROPHILS % (AUTO) 69.2 % (42.2-75.2); PLATELET COUNT 233 10^3/uL (140-440); RDW COEFFICIENT OF VARIATION 13.3 % (11.6-14.8); RED BLOOD COUNT 4.53 10^6/ul (4.70-6.10)
[2021-11-20 17:22] LABS: ALANINE AMINOTRANSFERASE 26.8 U/L (0-50); ALKALINE PHOSPHATASE 94.5 U/L (56-119); BILIRUBIN,TOTAL 0.58 mg/dL (0.2-1.3); CALCIUM 9.92 mg/dL (8.4-10.2); CARBON DIOXIDE 32.6 mmol/L (22-30.0); CHLORIDE 95.6 mmol/L (98-107); CREATININE 1.86 mg/dL (0.60-1.10); GLUCOSE 143.9 mg/dL (74-106); SODIUM 140.1 mmol/L (134.5-145); TOTAL PROTEIN 8.16 g/dL (6.3-8.2)
[2021-11-20 17:37] LABS: BLOOD ALCOHOL < 10.0 mg/dL (0.0-50.0); TROPONIN I < 0.012 ng/ml (0.0000-0.120)
--- NOTE | 2021-11-20 18:39 | CT ---
EXAM: CT of the head without contrast. HISTORY: Syncope. COMPARISON: None available. TECHNIQUE: Noncontrast CT of the head. FINDINGS: No intracranial hemorrhage or mass effect is identified. There is minimal prominence of the sulci. The ventricles are normal in size and configuration. No karimi white matter differentiation loss is see n to suggest an acute infarct. The calvarium is intact. There is mucosal thickening and an air-fluid level of the right maxillary s inus. Small amount of fluid or mucosal thickening is seen in the right frontal sinus. [facility] for complete evaluation of the facial bones. IMPRESSION: No evidence of an acute intracranial process. All CT scans are performed using dose optimization techniques as appropriate to the performed exam an d include at least one of the following: Automated exposure control, adjustment of the mA and/or kV according t o size, and the use of iterative reconstruction technique.
--- NOTE | 2021-11-20 18:42 | CT ---
EXAM: Noncontrast facial bone CT HISTORY: Fall COMPARISON: 08/11/[address] TECHNIQUE: Axial noncontrast CT of the facial bones with sagittal and coronal reformats. FINDINGS: No facial bone fracture is identified. Multifocal paranasal sinus mucosal thickening is seen and mos t prominent within the right maxillary sinus. There is a right maxillary sinus air-fluid level. Lef tward nasal septum deviation is identified. Mild left periorbital soft tissue swelling is seen. IMPRESSION: No facial bone fracture. Right maxillary acute on chronic sinusitis. Mild left periorbital soft tissue swelling. All CT scans are performed using dose optimization techniques as appropriate to the performed exam an d include at least one of the following: Automated exposure control, adjustment of the mA and/or kV according t o size, and the use of iterative reconstruction technique.
--- NOTE | 2021-11-20 18:43 | DI ---
EXAM: Two views right knee HISTORY: Fall COMPARISON: None available FINDINGS: No fracture or dislocation is identified. The joint spaces are maintained. There is a possible trac e joint effusion. A bone island of the proximal tibia is noted. IMPRESSION: No acute osseous abnormality. Possible trace joint effusion.
--- NOTE | 2021-11-20 18:44 | DI ---
EXAM: AP view of the pelvis and hips. Frog-leg lateral view of the right hip. Frog-leg lateral view of the left hip. HISTORY: Fall COMPARISON: 08/25/2017 CT FINDINGS: No fracture or dislocation is identified. Minimal joint space loss of the hips is seen with mild mar ginal osteophyte formation on the right. IMPRESSION: No acute osseous abnormality. Mild right and minimal left hip osteoarthritis.
[2021-11-20] MEDS ORDERED: BOOSTRIX IM ONE (18:45)
--- NOTE | 2021-11-20 18:45 | DI ---
EXAM: Three views left ankle HISTORY: Pain COMPARISON: None available FINDINGS: No fracture or dislocation is identified. There is a tiny chronic ossicle inferior to the lateral ma lleolus. The ankle mortise is symmetric. The talar dome contour is normal. Calcaneal spurs are pre sent. There is a small bone island of the calcaneus. No gross soft tissue abnormality is evident. IMPRESSION: No acute osseous abnormality. Calcaneal spurs.
--- NOTE | 2021-11-20 18:47 | DI ---
EXAMINATION: AP chest radiograph. HISTORY: Fall COMPARISON: 06/11/2021, 03/20/2015 FINDINGS: There is a left basilar calcified granuloma.No focal consolidation, pleural effusion or pneumothorax is identified. The cardiomediastinal silhouette is within normal limits. A loop recorder is seen. IMPRESSION: No acute cardiopulmonary findings.
--- NOTE | 2021-11-20 18:48 | CT ---
EXAM: CT cervical spine without contrast HISTORY: Neck pain COMPARISON: None. TECHNIQUE: Axial CT imaging of the cervical spine was performed without contrast. Sagittal and coron al reconstructed images were made to better evaluate pathology. FINDINGS: There is no acute fracture. The vertebral endplates all appear preserved without compressi on deformity. There is anatomic vertebral alignment. There is intervertebral disc space narrowing s een at the C7-T1 level with multilevel endplate spurring. The prevertebral soft tissue is within nor mal limits. Incompletely imaged is a opacification involving the right maxillary sinus. IMPRESSION: No acute cervical spine abnormality. All CT scans are performed using dose optimization techniques as appropriate to the performed exam an d include at least one of the following: Automated exposure control, adjustment of the mA and/or kV according t o size, and the use of iterative reconstruction technique.
[2021-11-20] MEDS ORDERED: HUMULIN R SUBCUT PRN (18:54)
[2021-11-20] MEDS ORDERED: VENTOLIN HFA (PER PUFF-WITH SPACER) IH PRN (18:58)
[2021-11-20] MEDS: NEURONTIN PO SCH (21:54)
[2021-11-21] MEDS: TYLENOL PO PRN ×2 (05:23→10:17)
[2021-11-21 05:47] LABS: AMPHETAMINE SCREEN,URINE NEGATIVE (NEGATIVE); BARBITURATE SCREEN,URINE NEGATIVE (NEGATIVE); BENZODIAZEPINES SCREEN,URINE NEGATIVE (NEGATIVE); CANNABINOID SCREEN,URINE NEGATIVE (NEGATIVE); COCAIN SCREEN,URINE NEGATIVE (NEGATIVE); METHADONE URINE SCREEN NEGATIVE (NEGATIVE); METHAMPHETAMINES SCREEN,URINE NEGATIVE (NEGATIVE); OPIATE SCREEN,URINE NEGATIVE (NEGATIVE); OXYCODONE URINE SCREEN NEGATIVE (NEGATIVE); PHENCYCLIDINE SCREEN,URINE NEGATIVE (NEGATIVE); PROPOXYPHENE URINE SCREEN NEGATIVE (NEGATIVE); TRICYCLIC ANTIDEPRESSANTS URIN POSITIVE (NEGATIVE)
[2021-11-21 05:53] LABS: BASOPHILS # (AUTO) 0.1 K/uL (0-0.2); BASOPHILS % (AUTO) 1.1 % (0.0-3.0); EOSINOPHILS # (AUTO) 0.8 K/ul (0.0-0.7); EOSINOPHILS % (AUTO) 9.4 % (0.0-7.0); HEMATOCRIT 41.3 % (42.0-52.0); HEMOGLOBIN 13.9 g/dl (14.0-18.0); IMMATURE GRANULOCYTE % (AUTO) 0.1 % (0.0-5.0); MEAN CORPUSCULAR HGB CONC 33.7 (31.8-35.4); MONOCYTES # (AUTO) 0.5 K/uL (0.4-2.0); MONOCYTES % (AUTO) 5.7 (0-10); NEUTROPHILS # (AUTO) 5.5 K/ul (2.0-6.9); NEUTROPHILS % (AUTO) 61.7 % (42.2-75.2); PLATELET COUNT 224 10^3/uL (140-440); RDW COEFFICIENT OF VARIATION 13.3 % (11.6-14.8); RED BLOOD COUNT 4.64 10^6/ul (4.70-6.10); WHITE BLOOD COUNT 8.95 K/ul (4.2-10.2)
[2021-11-21 06:04] LABS: ALANINE AMINOTRANSFERASE 26.1 U/L (0-50); ALBUMIN 4.86 g/dL (3.5-5.0); ALKALINE PHOSPHATASE 97.9 U/L (56-119); ASPARTATE AMINO TRANSFERASE 27.8 U/L (17-59); BILIRUBIN,TOTAL 0.65 mg/dL (0.2-1.3); BLOOD UREA NITROGEN 39.3 mg/dL (9-20); CALCIUM 9.86 mg/dL (8.4-10.2); CARBON DIOXIDE 31.1 mmol/L (22-30.0); CHLORIDE 98.7 mmol/L (98-107); CREATININE 1.58 mg/dL (0.60-1.10); GLUCOSE 145.9 mg/dL (74-106); POTASSIUM 3.67 mmol/L (3.5-5.1); SODIUM 140.9 mmol/L (134.5-145); TOTAL PROTEIN 8.25 g/dL (6.3-8.2)
[2021-11-21] MEDS: LOPRESSOR PO SCH (08:49)
[2021-11-21] MEDS: IMDUR PO SCH (08:49)
[2021-11-21] MEDS: PLAVIX PO SCH (08:50)
[2021-11-21] MEDS: ROCEPHIN 1 GM/50 ML D5W 1 GM/50 ML BAG IV SCH (08:50)
[2021-11-21] MEDS: NEURONTIN PO SCH ×2 (08:50→20:57)
[2021-11-21] MEDS: ASPIRIN CHEWABLE PO SCH (08:50)
[2021-11-21] MEDS ORDERED: LOPRESSOR PO SCH (09:00)
--- NOTE | 2021-11-21 13:32 | RS.PTINEVL ---
Subjective - Patient information Date of Evaluation: 11/21/21 Date of Arrival on Unit: 11/20/21 Admitted From:: Home Diagnosis: syncope, fall Usual Living Arrangement: With Spouse Living Arrangement Comments: lives with , adult daughter and 2 grandchildren Home Environment: House, Stairs (few), Rail Medical History: Hypertension, CVA/TIA (w L side weakness), Diabetes Medical History Comments:: anxiety, GERD, heel spurs, [place] Medications: see chart Subjective Information/ Patient Comments:: pt states that he does not know how he blacked out and fell yesterday. He reports he is sore in B knees and neck. He reports he has had some correction effects from the COVID since he was diagnosed with it in June. - Level of function Prior to this admission, the patient could do the following:: Independent Selfcare, Independent ADL's, Independent Ambulation, Drive, Participated in Social Activities Outside home Current Level of Function: Partially Dependent Current Equipment Used at Home: glucometer Pain Assessement - Location B knees Description: Throbbing, Aching Intensity: 3 Pain Behavior: Guarding, Facial Grimacing Pain Aggravating Factors: Changing Position, Standing Pain Alleviating Factors: Medication Effects of Pain: pt refused ice or hot packs. He states he doesn't like the feel of them. cervical Description: Tightness, Throbbing, Aching Intensity: 3 Pain Behavior: Guarding Pain Alleviating Factors: Medication Interventions - Objective Patient Orientation: Person, Place, Time, Situation Current Interventions: Telemetry Observation: pt with significant B shld protraction worse on L. He has bruising noted to L side of face and an abrasion on L knee Range of Motion - ROM Right Upper Extremity AROM: WFL's Left Upper Extremity AROM: Slight limitation (slight decrease in shld flex) Right Lower Extremity AROM: Slight limitation (decreased knee ROM due to pain) Left Lower Extremity AROM: Slight limitation (decreased knee ROM due to pain) Muscle Strength - Muscle Strength Right Upper Extremity Strength: Mild Weakness (grossly 4+/5) Left Upper Extremity Strength: Mild Weakness (grossly 4/5) Right Lower Extremity Strength: Mild Weakness (hip flex 4/5, knee flex/ext 3-/5, ankle DF/PF 4/5) Left Lower Extremity Strength: Mild Weakness (hip flex 4-/5, knee flex/ext 3-/5, ankle DF/PF 4-/5) Sensation - Sensation Right Upper Extremity Sensation: Intact/Normal Left Upper Extremity Sensation: Intact/Normal Right Lower Extremity Sensation: Intact/Normal Left Lower Extremity Sensation: Intact/Normal Palpation Palpation Findings: Tenderness (B knees) Balance - Sitting Balance and Reactions Static Sitting Balance: Good Dynamic Sitting Balance: Good - Standing Balance and Reactions Static Standing Balance: Poor Dynamic Standing Balance: Poor Standing Equilibrium Reactions: Delayed Left, Delayed Right Standing Protective Reactions: Delayed Left, Delayed Right - Comments Balance Assessment Comments: pt limited due to B knee pain Functional Mobility - Bed Mobility Rolling R/L: Independent Supine to Sit: Supervision Sit to Supine: CGA, Min Assist - Transfers Sit to Stand: Min Assist Stand to Sit: CGA - Safety Awareness Safety Awareness: Good VAMSHI INDEX SCORE: n/a Ambulation - Ambulation Assistive Device Used: No Assistive Device Orthotic/Prosthetic Device: No Distance: 110 Assistance needed with Ambulation: CGA, Min Assist Quality of Ambulation: pt amb holding on to rail in hallway. pt with narrow RAINE, decreased step length and occasional scissoring Gait Deviations: Narrow Based gait, Forward posture, Short stride, Deviates from path Factors Affecting Ambulation: Decreased Balance, Pain, Weakness, Decreased ROM, Decreased Safety, Limited Endurance Treatment time - Time with patient Length of Evaluation: 22 Total treatment time: 27 Patient Education - Education Patient Education: Activity Modification, Education of Plan of Care Teaching Recipient: Patient Teaching Methods: Discussion Comments: discussion regarding POC as well as outpatient PT. pt is concerned about how he would pay for it. Discussed with healthcare social worker. Assessment - Assessment Problem List:: Decreased level of function, Requires training/education, Decreased safety/Risk of falls, Weakness, Pain limits previous level of function Rehab Potential: Good Further Therapy Indicated?: Yes Evaluation Complexity: HISTORY: Medium, EXAM OF BODY SYSTEMS: Medium, CLINICAL PRESENTATION: Medium, CLINICAL DECISION MAKING: Medium Patient's Goal(s): Get my strength back Short Term Goals GOAL #1: Transfer sup to /from sit independently Goal to be met by: 11/24/21 GOAL #2: Transfer sit to/from stand SBA Goal to be met by: 11/24/21 GOAL #3: pt amb 140ft with CGA w/w/o appr.AD w no LOB Goal to be met by: 11/24/21 GOAL #4: Improve BLE strength 4 to 4+/5 Goal to be met by: 11/24/21 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 difficulty walking R 26.2. weakness M62.81 Has the Physician been added for Co-signature?: Yes
[2021-11-21] MEDS ORDERED: TOPAMAX PO ONE (15:04)
--- NOTE | 2021-11-21 15:08 | PCM.PROG ---
Date Seen by Provider: 11/21/21 Time Seen by Provider: 07:35 Subjective: "I'm pretty woozy" Objective: Vitals: T=97.4 F, P=90, R=18, YO=783/67, SPO2=91 HEENT: Abrasions and contusions to face Neck: supple Lungs: Clear to A/P CVS: RRR, no M/R/G Abdomen: Benign Extremities: NO CCERP Neurological: C/O headache, no focal deficits Skin: No rash or cellultis Lab/Tests/Diagnostic Imaging: (1) Syncope: Status: Acute Code(s): R55 - Syncope and collapse SNOMED Code(s): 300548604 Assessment: Etiology of syncopal episode uncertain. Will continue to observe (2) Type 2 diabetes mellitus with hemoglobin A1c goal of less than 7.0%: Status: Acute Code(s): E11.9 - Type 2 diabetes mellitus without complications SNOMED Code(s): 97122656 Assessment: All diabetic meds help. Will gradually re-introduce them (3) Head injury due to trauma: Status: Acute Code(s): S09.90XA - Unspecified injury of head, initial encounter SNOMED Code(s): 30629887 Assessment: C/O headache will restart topamax and follw clinically Plan: Topamax 100 bid, will supplement as needed. Advance diet, restart meloxicam and metformin,
[2021-11-21] MEDS: GLUCOPHAGE PO SCH (16:29)
[2021-11-21] MEDS: MOBIC PO SCH (16:29)
[2021-11-21] MEDS: TOPAMAX PO SCH (21:29)
[2021-11-22 06:08] LABS: BASOPHILS # (AUTO) 0.1 K/uL (0-0.2); BASOPHILS % (AUTO) 1.3 % (0.0-3.0); EOSINOPHILS % (AUTO) 8.6 % (0.0-7.0); HEMATOCRIT 40.7 % (42.0-52.0); HEMOGLOBIN 13.7 g/dl (14.0-18.0); IMMATURE GRANULOCYTE % (AUTO) 0.2 % (0.0-5.0); LYMPHOCYTES # (AUTO) 2.5 K/uL (0.60-3.4); MEAN CORPUSCULAR HGB CONC 33.7 (31.8-35.4); MEAN CORPUSCULAR VOLUME 89.3 fl (80.0-94.0); MONOCYTES # (AUTO) 0.5 K/uL (0.4-2.0); MONOCYTES % (AUTO) 4.6 (0-10); NEUTROPHILS # (AUTO) 6.9 K/ul (2.0-6.9); NEUTROPHILS % (AUTO) 62.3 % (42.2-75.2); PLATELET COUNT 234 10^3/uL (140-440); RDW COEFFICIENT OF VARIATION 13.4 % (11.6-14.8); RED BLOOD COUNT 4.56 10^6/ul (4.70-6.10); WHITE BLOOD COUNT 11.01 K/ul (4.2-10.2)
[2021-11-22 06:21] LABS: ALANINE AMINOTRANSFERASE 27.3 U/L (0-50); ALBUMIN 5.09 g/dL (3.5-5.0); ALKALINE PHOSPHATASE 96.7 U/L (56-119); ASPARTATE AMINO TRANSFERASE 27.4 U/L (17-59); BILIRUBIN,TOTAL 0.53 mg/dL (0.2-1.3); BLOOD UREA NITROGEN 34.6 mg/dL (9-20); CALCIUM 9.57 mg/dL (8.4-10.2); CARBON DIOXIDE 28.7 mmol/L (22-30.0); CHLORIDE 98.7 mmol/L (98-107); CREATININE 1.52 mg/dL (0.60-1.10); GLUCOSE 159.6 mg/dL (74-106); POTASSIUM 3.23 mmol/L (3.5-5.1); SODIUM 140.8 mmol/L (134.5-145); TOTAL PROTEIN 8.73 g/dL (6.3-8.2)
[2021-11-22] MEDS: TOPAMAX PO SCH ×2 (08:24→20:55)
[2021-11-22] MEDS: PLAVIX PO SCH (08:24)
[2021-11-22] MEDS: IMDUR PO SCH (08:24)
[2021-11-22] MEDS: NEURONTIN PO SCH ×2 (08:24→20:55)
[2021-11-22] MEDS: ASPIRIN CHEWABLE PO SCH (08:24)
[2021-11-22] MEDS: LOPRESSOR PO SCH (08:24)
[2021-11-22] MEDS: GLUCOPHAGE PO SCH ×2 (08:24→16:48)
[2021-11-22] MEDS: ROCEPHIN 1 GM/50 ML D5W 1 GM/50 ML BAG IV SCH (08:30)
[2021-11-22] MEDS: PERCOCET 5-325 PO PRN (08:30)
--- NOTE | 2021-11-22 10:25 | PCM.PROG ---
Date Seen by Provider: 11/22/21 Time Seen by Provider: 10:22 Subjective: pt seen for syncope, no hx seizure, takes topamax for migraines, pt still with facial soreness, dizzy w/o syncope today Objective: Vitals: T=97.7 F, P=85, R=18, VL=073/75, PJN5=433 HEENT: []conjunctiva clear Neck: []supple Lungs: [] no respiratory distress CVS: []RRR Abdomen: []nondistended Extremities: []flynn Neurological: []alert and oriented Skin: []pink Lab/Tests/Diagnostic Imaging: [] K+ 3.2 (1) Syncope: Status: Acute Code(s): R55 - Syncope and collapse SNOMED Code(s): 895939809 (2) Type 2 diabetes mellitus with hemoglobin A1c goal of less than 7.0%: Status: Acute Code(s): E11.9 - Type 2 diabetes mellitus without complications SNOMED Code(s): 74817808 (3) Head injury due to trauma: Status: Acute Code(s): S09.90XA - Unspecified injury of head, initial encounter SNOMED Code(s): 64086973 Plan: plan to d/c home Wednesday care to Dr Xavier at 19:00
[2021-11-22] MEDS: MOBIC PO SCH (16:48)
--- NOTE | 2021-11-22 21:17 | DI ---
EXAM: Left shoulder three views HISTORY: Fall COMPARISON: None. FINDINGS / impression: No acute fracture dislocation. Alignment is anatomic. Mild degenerative changes. Suspected calcified granuloma in the left lung. If symptoms persist, repeat radiographs in 7-10 days recommended.
[2021-11-23] MEDS: PERCOCET 5-325 PO PRN ×2 (05:05→20:33)
[2021-11-23 05:22] LABS: BASOPHILS # (AUTO) 0.1 K/uL (0-0.2); BASOPHILS % (AUTO) 1.4 % (0.0-3.0); EOSINOPHILS # (AUTO) 0.8 K/ul (0.0-0.7); EOSINOPHILS % (AUTO) 8.4 % (0.0-7.0); HEMATOCRIT 38.7 % (42.0-52.0); HEMOGLOBIN 13.1 g/dl (14.0-18.0); IMMATURE GRANULOCYTE % (AUTO) 0.3 % (0.0-5.0); LYMPHOCYTES # (AUTO) 2.5 K/uL (0.60-3.4); MEAN CORPUSCULAR HGB CONC 33.9 (31.8-35.4); MEAN CORPUSCULAR VOLUME 88.8 fl (80.0-94.0); MONOCYTES # (AUTO) 0.3 K/uL (0.4-2.0); MONOCYTES % (AUTO) 3.8 (0-10); NEUTROPHILS # (AUTO) 5.2 K/ul (2.0-6.9); NEUTROPHILS % (AUTO) 58.1 % (42.2-75.2); PLATELET COUNT 217 10^3/uL (140-440); RDW COEFFICIENT OF VARIATION 13.5 % (11.6-14.8); RED BLOOD COUNT 4.36 10^6/ul (4.70-6.10); WHITE BLOOD COUNT 8.97 K/ul (4.2-10.2)
[2021-11-23 05:34] LABS: ALANINE AMINOTRANSFERASE 25.7 U/L (0-50); ALBUMIN 4.66 g/dL (3.5-5.0); ALKALINE PHOSPHATASE 91.5 U/L (56-119); ASPARTATE AMINO TRANSFERASE 27.4 U/L (17-59); BILIRUBIN,TOTAL 0.53 mg/dL (0.2-1.3); BLOOD UREA NITROGEN 31.1 mg/dL (9-20); CALCIUM 9.38 mg/dL (8.4-10.2); CARBON DIOXIDE 27.4 mmol/L (22-30.0); CHLORIDE 99.1 mmol/L (98-107); CREATININE 1.41 mg/dL (0.60-1.10); GLUCOSE 138.8 mg/dL (74-106); POTASSIUM 3.26 mmol/L (3.5-5.1); SODIUM 139.5 mmol/L (134.5-145); TOTAL PROTEIN 8.06 g/dL (6.3-8.2)
[2021-11-23] MEDS: TYLENOL PO PRN (07:19)
[2021-11-23] MEDS: TOPAMAX PO SCH ×2 (08:18→20:33)
[2021-11-23] MEDS: ASPIRIN CHEWABLE PO SCH (08:18)
[2021-11-23] MEDS: GLUCOPHAGE PO SCH ×2 (08:19→16:57)
[2021-11-23] MEDS: PLAVIX PO SCH (08:19)
[2021-11-23] MEDS: NEURONTIN PO SCH ×2 (08:19→20:33)
[2021-11-23] MEDS: IMDUR PO SCH (08:19)
[2021-11-23] MEDS: LOPRESSOR PO SCH (08:19)
[2021-11-23] MEDS: ROCEPHIN 1 GM/50 ML D5W 1 GM/50 ML BAG IV SCH (08:22)
--- NOTE | 2021-11-23 11:15 | PCM.PROG ---
Date Seen by Provider: 11/23/21 Time Seen by Provider: 11:12 Subjective: pt still very sore, occasionally dizzy, no vomiting, no loc Objective: Vitals: T=97.3 F, P=81, R=18, QC=966/69, VEQ0=713 HEENT: []conjunctiva clear Neck: []supple Lungs: [] no repiratory distress CVS: [] Abdomen: []nondistended Extremities: []flynn Neurological: []alert and oriented Skin: []bruising Lab/Tests/Diagnostic Imaging: [] wbc 8.9, K+ 3.26 (1) Syncope: Status: Acute Code(s): R55 - Syncope and collapse SNOMED Code(s): 213692432 (2) Type 2 diabetes mellitus with hemoglobin A1c goal of less than 7.0%: Status: Acute Code(s): E11.9 - Type 2 diabetes mellitus without complications SNOMED Code(s): 96050859 (3) Head injury due to trauma: Status: Acute Code(s): S09.90XA - Unspecified injury of head, initial encounter SNOMED Code(s): 02654655 Plan: continue rocephin, discharge home in the morning
[2021-11-23] MEDS: MOBIC PO SCH (16:57)
[2021-11-24 05:10] VITALS: BP 110/74; TEMP 97.1
[2021-11-24 06:54] LABS: BASOPHILS # (AUTO) 0.1 K/uL (0-0.2); BASOPHILS % (AUTO) 1.1 % (0.0-3.0); EOSINOPHILS # (AUTO) 0.6 K/ul (0.0-0.7); EOSINOPHILS % (AUTO) 8.1 % (0.0-7.0); HEMATOCRIT 36.3 % (42.0-52.0); HEMOGLOBIN 12.3 g/dl (14.0-18.0); IMMATURE GRANULOCYTE % (AUTO) 0.3 % (0.0-5.0); LYMPHOCYTES # (AUTO) 1.9 K/uL (0.60-3.4); LYMPHOCYTES % (AUTO) 26.2 (10.0-50.0); MEAN CORPUSCULAR HEMOGLOBIN 30.2 pg (27.0-31.0); MEAN CORPUSCULAR HGB CONC 33.9 (31.8-35.4); MEAN CORPUSCULAR VOLUME 89.2 fl (80.0-94.0); MONOCYTES # (AUTO) 0.3 K/uL (0.4-2.0); MONOCYTES % (AUTO) 4.5 (0-10); NEUTROPHILS # (AUTO) 4.4 K/ul (2.0-6.9); NEUTROPHILS % (AUTO) 59.8 % (42.2-75.2); PLATELET COUNT 211 10^3/uL (140-440); RDW COEFFICIENT OF VARIATION 13.5 % (11.6-14.8); RED BLOOD COUNT 4.07 10^6/ul (4.70-6.10); WHITE BLOOD COUNT 7.37 K/ul (4.2-10.2)
[2021-11-24 07:09] LABS: ALANINE AMINOTRANSFERASE 25.6 U/L (0-50); ALBUMIN 4.46 g/dL (3.5-5.0); ALKALINE PHOSPHATASE 78.1 U/L (56-119); ASPARTATE AMINO TRANSFERASE 27.2 U/L (17-59); BILIRUBIN,TOTAL 0.37 mg/dL (0.2-1.3); BLOOD UREA NITROGEN 29.3 mg/dL (9-20); CALCIUM 9.18 mg/dL (8.4-10.2); CARBON DIOXIDE 28.1 mmol/L (22-30.0); CHLORIDE 103.4 mmol/L (98-107); CREATININE 1.54 mg/dL (0.60-1.10); GLUCOSE 145.5 mg/dL (74-106); POTASSIUM 3.18 mmol/L (3.5-5.1); SODIUM 141.2 mmol/L (134.5-145); TOTAL PROTEIN 7.46 g/dL (6.3-8.2)
[2021-11-24] MEDS ORDERED: K-DUR PO ONE (08:11)
[2021-11-24] MEDS: PLAVIX PO SCH (08:24)
[2021-11-24] MEDS: LOPRESSOR PO SCH (08:24)
[2021-11-24] MEDS: TOPAMAX PO SCH (08:24)
[2021-11-24] MEDS: NEURONTIN PO SCH (08:24)
[2021-11-24] MEDS: IMDUR PO SCH (08:24)
[2021-11-24] MEDS: GLUCOPHAGE PO SCH (08:24)
[2021-11-24] MEDS: ASPIRIN CHEWABLE PO SCH (08:25)
== END 2021-11-24 13:00 | disposition home or self-care (01) | DRG 312 ==
LOC: ED 16:22 → MEDSURG B 20:23
PROVIDERS: ADMIT Internal Medicine Geriatric Medicine; ATTEND Surgery
DX: Z51.81 Encounter for therapeutic drug level monitoring; Z79.899 Other long term (current) drug therapy; E11.9 Type 2 diabetes mellitus without complications; R55 Syncope and collapse; W19.XXXA Unspecified fall, initial encounter; M25.572 Pain in left ankle and joints of left foot; M25.552 Pain in left hip; S00.511A Abrasion of lip, initial encounter; S09.90XA Unspecified injury of head, initial encounter; I10 Essential (primary) hypertension; M25.561 Pain in right knee; I69.354 Hemiplegia and hemiparesis following cerebral infarction affecting left non-dominant side; R04.0 Epistaxis